=== PATIENT | male | born 1995 | race Hispanic/Latino ===

== ENCOUNTER 2018-09-17 15:21 | Emergency (ER) | payer BC, OTHER ==
[2018-09-17] MEDS ORDERED: IBUPROFEN 600 MG TABLET ONE (17:01)
== END 2018-09-17 18:36 | disposition home or self-care (01) ==
LOC: EDH 15:21
DX: F41.1 Generalized anxiety disorder (principal); R07.89 Other chest pain; Z88.1 Allergy status to other antibiotic agents
CPT/HCPCS: 71046; 93005

== ENCOUNTER 2018-10-18 12:28 | Inpatient (IN) | payer BC, OTHER ==
[~2018-10-18] VITALS: Ht 170.2 cm; Wt 92.5 kg
[2018-10-18] MEDS ORDERED: MECLIZINE HCL 25 MG TABLET ONE (12:52)
[2018-10-18] MEDS ORDERED: SODIUM CHLORIDE 0.9% 1000ML 1,000 ML IV ONE (12:52)
[2018-10-18] MEDS ORDERED: ONDANSETRON HCL 4 MG/2 ML VIAL ONE (13:05)
[2018-10-18 13:15] LABS: BASOPHILS % (AUTO) 0.4 % (0.0-5.0); EOSINOPHILS % (AUTO) 1.8 % (0.0-8.0); HEMATOCRIT 49.5 % (42-54); LYMPHOCYTES % (AUTO) 16.4 % (21.0-51.0); MEAN CORPUSCULAR HEMOGLOBIN 29.1 pg (27.0-33.0); MEAN CORPUSCULAR HGB CONC 34.8 g/dL (32.0-36.0); MEAN CORPUSCULAR VOLUME 83.6 fL (80-100); MONOCYTES % (AUTO) 6.4 % (3.0-13.0); NUCLEATED RED BLOOD CELLS 0.1 % (0.0-0.19); PLATELET COUNT (AUTO) 256 K/uL (130-400); RED BLOOD CELL COUNT(AUTO) 5.92 MIL/uL (4.50-6.20); WHITE BLOOD COUNT (AUTO) 9.6 K/uL (4.8-10.8)
[2018-10-18 13:30] LABS: ALBUMIN 4.1 g/dL (3.5-5.0); BILIRUBIN,TOTAL 1.1 mg/dL (0.2-1.0); TOTAL PROTEIN, SERUM 7.7 g/dL (6.0-8.3)
[2018-10-18 14:40] LABS: APPEARANCE,URINE CLOUDY (CLEAR); BILIRUBIN,URINE NEGATIVE (NEGATIVE); COLOR,URINE YELLOW (YELLOW); GLUCOSE, URINE (UA) NEGATIVE (NEGATIVE); KETONES,URINE NEGATIVE (NEGATIVE); LEUKOCYTE ESTERASE ,URINE NEGATIVE (NEGATIVE); NITRATE,URINE NEGATIVE (NEGATIVE); OCCULT BLOOD,URINE NEGATIVE (NEGATIVE); PH,URINE 7.5 (5.0-8.0); PROTEIN,URINE 30 (NEGATIVE)
[2018-10-18 14:49] LABS: AMPHET/METH SCREEN,URINE NEGATIVE (NEGATIVE); BARBITURATE SCREEN, URINE NEGATIVE (NEGATIVE); BENZODIAZEPINES SCREEN,URINE NEGATIVE (NEGATIVE); CANNABINOID SCREEN,URINE NEGATIVE (NEGATIVE); COCAINE SCREEN,URINE NEGATIVE (NEGATIVE); OPIATE SCREEN,URINE NEGATIVE (NEGATIVE); PHENCYCLIDINE SCREEN,URINE NEGATIVE (NEGATIVE)
[2018-10-18 14:54] LABS: AMORPHOUS SEDIMENT,UR Few /LPF (None Seen); BACTERIA,URINE Few /HPF (None Seen); RBC,URINE 0-1 /HPF (0-1); SPERM,URINE Moderate /HPF (None Seen); SQUAMOUS EPITHELIAL CELL,UR Rare /HPF (0-2); WBC,URINE 0-1 /HPF (0-1)
[2018-10-18] MEDS ORDERED: DIAZEPAM 5 MG TABLET ONE (15:29)
[2018-10-18] MEDS ORDERED: ACETAMINOPHEN 325 MG TAB PO PRN ×2 (17:15)
[2018-10-18 19:20] VITALS: BP 152/94
[2018-10-19] VITALS (7 sets, daily range): BP systolic 116–138; BP diastolic 61–85
[2018-10-19] MEDS: ONDANSETRON HCL 4 MG/2 ML VIAL IV PRN (06:58)
[2018-10-19] MEDS ORDERED: GADODIAMIDE 10 MMOL/20 ML ML IV ONE (08:20)
[2018-10-19] MEDS ORDERED: IOHEXOL-350 75 ML VIAL IV ONE (11:46)
[2018-10-19] MEDS: MECLIZINE HCL 25 MG TABLET PO SCH (20:45)
[2018-10-19] MEDS: FAMOTIDINE 20MG TAB 20 MG TAB PO SCH (20:45)
[2018-10-20 03:51] VITALS: BP 117/56
[2018-10-20 04:55] LABS: BASOPHILS % (AUTO) 0.5 % (0.0-5.0); HEMATOCRIT 45.8 % (42-54); LYMPHOCYTES % (AUTO) 26.9 % (21.0-51.0); MEAN CORPUSCULAR HEMOGLOBIN 29.5 pg (27.0-33.0); MEAN CORPUSCULAR HGB CONC 35.2 g/dL (32.0-36.0); MEAN CORPUSCULAR VOLUME 83.8 fL (80-100); MONOCYTES % (AUTO) 7.6 % (3.0-13.0); NUCLEATED RED BLOOD CELLS 0.1 % (0.0-0.19); PLATELET COUNT (AUTO) 258 K/uL (130-400); RED BLOOD CELL COUNT(AUTO) 5.46 MIL/uL (4.50-6.20); RED CELL DISTRIBUTION WIDTH 12.9 % (11.0-15.5); WHITE BLOOD COUNT (AUTO) 6.7 K/uL (4.8-10.8)
[2018-10-20 05:03] LABS: CREATININE 1.1 mg/dL (0.5-1.5)
[2018-10-20 08:18] VITALS: BP 140/93
[2018-10-20] MEDS: MECLIZINE HCL 25 MG TABLET PO SCH ×2 (08:19→13:12)
[2018-10-20] MEDS: FAMOTIDINE 20MG TAB 20 MG TAB PO SCH (08:19)
[2018-10-20] MEDS: ONDANSETRON HCL 4 MG/2 ML VIAL IV PRN (08:48)
[2018-10-20] MEDS ORDERED: MECL-111 PO (11:17)
[2018-10-20 11:48] VITALS: BP 138/72
== END 2018-10-20 14:47 | disposition home or self-care (01) | DRG 149 ==
LOC: EDH 12:28 → OBSVTOIN 17:15 → EDHIP 17:15 → 4CH 18:46
PROVIDERS: ADMIT Internal Medicine; ATTEND Internal Medicine
DX: R42 Dizziness and giddiness (principal); H57.04 Mydriasis; H55.00 Unspecified nystagmus; Z88.8 Allergy status to other drugs, medicaments and biological substances; Z82.49 Family history of ischemic heart disease and other diseases of the circulatory system
CPT/HCPCS: 36415; 70450; 70496; 70553; 80048; 80053; 80305; 81001; 82948; 85025; A9579; J2405; J7030; Q9967

== ENCOUNTER 2021-09-28 13:28 | Emergency (ER) | payer OTHER ==
[~2021-09-28] VITALS: Ht 167.6 cm; Wt 115.2 kg
[~2021-09-28 13:28] MED LIST: MECL-160 PO
[2021-09-28 13:29] VITALS: BP 152/102
[2021-09-28] MEDS ORDERED: HYDROCODONE/ACETAMINOPHEN 5/325 MG TAB PO ONE (14:00)
[2021-09-28] MEDS ORDERED: METH4TAB PO (14:42)
[2021-09-28] MEDS ORDERED: CYCL10TA16 PO (14:42)
[2021-09-28] MEDS ORDERED: ACET1TAB25 PO (14:42)
[2021-09-28] MEDS ORDERED: IBUP-2070 PO (14:42)
== END 2021-09-28 15:10 | disposition home or self-care (01) ==
LOC: EDH 13:28
DX: S09.90XA Unspecified injury of head, initial encounter (principal); R42 Dizziness and giddiness; M54.9 Dorsalgia, unspecified; Z88.1 Allergy status to other antibiotic agents; V49.49XA Driver injured in collision with other motor vehicles in traffic accident, initial encounter; Y93.89 Activity, other specified; Y92.89 Other specified places as the place of occurrence of the external cause; Y99.8 Other external cause status
CPT/HCPCS: 70450; 71045; 72040; 72070; 72100